=== PATIENT | female | born 1930 | race Caucasian/White ===

== ENCOUNTER 2016-12-23 19:24 | Inpatient (IN) | payer OTHER ==
--- NOTE | 2016-12-23 20:05 | PROVIDER DOCUMENTATION ---
HPI-Respiratory General - General Chief Complaint: Shortness of Breath Stated Complaint: sob Time Seen by Provider: 12/23/16 19:49 Source: patient, family Allergies/Adverse Reactions: Patient Allergies Allergy/AdvReac Type Severity Reaction Status Date / Time No Known Allergies Allergy Verified 09/05/16 09:08 Home Medications: Home Medication List Medication Instructions Recorded Confirmed Last Taken Type Pramipexole [Mirapex] 0.25 mg PO TID 01/17/16 12/23/16 12/23/16 History Megestrol Acetate [Megace Liquid] 200 mg PO BID #60 udc 10/03/16 12/23/16 Rx Mirtazapine [Remeron] 15 mg PO QHS #60 tablet 10/03/16 12/23/16 12/22/16 Rx Amlodipine Besylate 5 mg PO DAILY 12/23/16 12/23/16 12/23/16 History Benazepril HCl [Lotensin] 20 mg PO DAILY 12/23/16 12/23/16 12/23/16 History Buspirone HCl 7.5 mg PO BID 12/23/16 12/23/16 12/23/16 History Citalopram [Celexa] 20 mg PO BID 12/23/16 12/23/16 12/23/16 History Iron Carbonyl/Ascorbic Acid 1 each PO DAILY 12/23/16 12/23/16 12/23/16 History [Icar-C] Magnesium Hydroxide [Milk of 30 ml PO DIRECTED 12/23/16 12/23/16 12/19/16 19: 00 History Magnesia] Multivitamins/Minerals [Centrum 1 tab PO DAILY 12/23/16 12/23/16 12/23/16 History Silver] Omeprazole 40 mg PO DAILY@0700 12/23/16 12/23/16 12/23/16 History Polyethylene Glycol 3350 [Miralax] 17 gm PO DIRECTED 12/23/16 12/23/16 19:00 History - History of Present Illness-Resp Nature of Presenting Problem: 86 Y/O F presents to ED with Respiratory. Pt family states that she's been staying at [facility], nursed called family and states a sudden onset of SOB, rapid breathing, and lethargic. Pt had an ulcer and had surgery which removed the top of her stomach in September. Pt has sorees on the bottom of her feet, and fasciculation. Pt had confused conversation and generalized ABD pain. Quality of Pain: reports: aching Severity in ED: reports: severe Onset/Duration: reports: this morning Timing: reports: still present Cough Quality/Degree: reports: no cough Episode Frequency: no prior episodes Current Respiratory Medication Therapy: Initiated none Associated Symptoms: reports: heart racing, shortness of breath. denies: flu- like symptoms Review of Systems - Adult - REVIEW OF SYSTEMS - ADULT Constitutional: denies: chills, fever Eyes: reports: no symptoms reported Ears, Nose, Mouth & Throat: reports: no symptoms reported Cardiovascular: reports: no symptoms reported Respiratory: reports: shortness of breath, other (increased breathe sounds) Gastrointestinal: reports: abdominal pain, constipation. denies: nausea, vomiting Genitourinary: reports: no symptoms reported Musculoskeletal: reports: no symptoms reported Integumentary: reports: no symptoms reported Neurological: reports: no symptoms reported Psychiatric: reports: no symptoms reported Endocrine: reports: no symptoms reported Hematologic/Lymphatic: reports: no symptoms reported Allergic/Immunologic: reports: no symptoms reported All Other Systems: Reviewed and Negative Past History - Adult - PAST MEDICAL HISTORY-ADULT Review of Records: reports: Old Records Reviewed, Nursing Assessment Review, Medications Reviewed, Social history reviewed & non-contributory. Major Childhood Illnesses: reports: denies history Cardiovascular: reports: HTN Respiratory: reports: denies history Gastrointestinal: reports: denies history Obstetrical/Gynecological: reports: denies history Genitourinary: reports: denies history Musculoskeletal: reports: denies history Neurological: reports: dementia Psychiatric: reports: anxiety Endocrine/Immune: reports: anemia, Diabetes Other Conditions: reports: denies history - PRIOR SURGERIES/PROCEDURES Surgical/Procedure History: reports: appendectomy, cholecystectomy, hysterectomy , bowel surgery - PRIOR HOSPITALIZATIONS Prior Hospitalizations: reports: for similar symptoms - IMMUNIZATION STATUS Childhood Immunizations: See Nurse Assessment Flu Vaccine: See Nurse Assessment - FAMILY HISTORY Family History: reviewed, not pertinent - SOCIAL HISTORY Living Situation: family Physical Exam-General - PHYSICAL EXAM-ADULT Initial Vital Signs Reviewed: Yes - CONSTITUTIONAL General Appearance: no apparent distress, lethargic. negative: appears well, alert - EYES Eyes: PERRL/EOMI, pink conjunctivae - HEAD, EARS, NOSE, MOUTH & THROAT HENMT: normocephalic/atraumatic, TMs normal, pharynx normal. negative: moist mucous membranes - NECK Neck: non-tender, full range of motion, supple - RESPIRATORY Respiratory: chest non-tender, lungs clear, normal breath sounds - CARDIOVASCULAR Cardiovascular: tachycardia - GASTROINTESTINAL (ABDOMEN) Abdominal Exam: normal bowel sounds, tenderness - MUSCULOSKELETAL Back Exam: normal inspection, no CVA tenderness, no vertebral tenderness Extremity: normal range of motion, tenderness (to feet), other (sores on bottom of feet, fasciculation) - SKIN Integumentary: normal color, normal turgor, warm/dry - PSYCHIATRIC Psych/Mental Status: negative: oriented x 3 Progress - PLAN OF CARE/RESULTS Progress/Plan/Lab Results: Laboratory Tests 12/23/16 12/23/16 12/23/16 20:19 20:23 20:23 WBC RBC Hgb Hct MCV MCH MCHC RDW Std Deviation Plt Count MPV Immature Gran % (Auto) Neut % (Auto) Lymph % (Auto) Ritchie % (Auto) Eos % (Auto) Baso % (Auto) Immature Gran # (Auto) Neut # (Auto) Lymph # (Auto) Ritchie # (Auto) Eos # (Auto) Baso # (Auto) D-Dimer Specimen Type Sample Site pH pCO2 pO2 HCO3 Base Excess Oxyhemoglobin ABG O2 Sat (Calculated) ABG O2 Saturation ABG Carboxyhemoglobin ABG Methemoglobin Noel Test A-a O2 Difference Total Hemoglobin Lactate Liter Flow Blood Gas Modality FiO2 % Sodium 134 L Potassium 4.5 Chloride 108 H Carbon Dioxide 11 L Anion Gap 15 BUN 35 H Creatinine 1.6 H Estimated GFR/1.73 m2 30 BUN/Creatinine Ratio 22 Glucose 162 H Calculated Osmolality 280 Calcium 8.7 L Total Bilirubin < 0.15 L AST 22 ALT 9 L Alkaline Phosphatase 100 Creatine Kinase 16 L Troponin T < 0.010 [id number] Pept Total Protein 5.8 L Albumin 2.8 L Globulin 3.0 Albumin/Globulin Ratio 1.0 Urine Source CLEAN CATCH Urine Color YELLOW Urine Clarity VERY CLOUDY A Urine pH 5.0 Ur Specific Douglas 1.010 Urine Protein 2+(100 mg/dL) A Urine Ketones NEGATIVE Urine Blood 1+ A Urine Nitrite NEGATIVE Urine Bilirubin NEGATIVE Urine Urobilinogen NORMAL Urine Microscopic RBC 10-20 A Urine WBC 2+ A Urine Microscopic WBC TNTC A Ur Epithelial Cells <10 Urine Bacteria 1+ Urine Glucose NEGATIVE 12/23/16 12/23/16 12/23/16 20:23 20:23 20:23 WBC 8.94 RBC 3.40 L Hgb 8.7 L Hct 28.2 L MCV 82.9 MCH 25.6 L MCHC 30.9 L RDW Std Deviation 21.0 H Plt Count 569 H MPV 9.6 Immature Gran % (Auto) 0.3 Neut % (Auto) 80.7 H Lymph % (Auto) 11.7 L Ritchie % (Auto) 6.4 Eos % (Auto) 0.3 Baso % (Auto) 0.6 Immature Gran # (Auto) 0.03 Neut # (Auto) 7.21 H Lymph # (Auto) 1.05 L Ritchie # (Auto) 0.57 Eos # (Auto) 0.03 Baso # (Auto) 0.05 D-Dimer 0.85 H Specimen Type Sample Site pH pCO2 pO2 HCO3 Base Excess Oxyhemoglobin ABG O2 Sat (Calculated) ABG O2 Saturation ABG Carboxyhemoglobin ABG Methemoglobin Noel Test A-a O2 Difference Total Hemoglobin Lactate Liter Flow Blood Gas Modality FiO2 % Sodium Potassium Chloride Carbon Dioxide Anion Gap BUN Creatinine Estimated GFR/1.73 m2 BUN/Creatinine Ratio Glucose Calculated Osmolality Calcium Total Bilirubin AST ALT Alkaline Phosphatase Creatine Kinase Troponin T [id number]-[id number]-Mpmzpwuphmi Pept 822 H Total Protein Albumin Globulin Albumin/Globulin Ratio Urine Source Urine Color Urine Clarity Urine pH Ur Specific Douglas Urine Protein Urine Ketones Urine Blood Urine Nitrite Urine Bilirubin Urine Urobilinogen Urine Microscopic RBC Urine WBC Urine Microscopic WBC Ur Epithelial Cells Urine Bacteria Urine Glucose 12/23/16 20:31 WBC RBC Hgb Hct MCV MCH MCHC RDW Std Deviation Plt Count MPV Immature Gran % (Auto) Neut % (Auto) Lymph % (Auto) Ritchie % (Auto) Eos % (Auto) Baso % (Auto) Immature Gran # (Auto) Neut # (Auto) Lymph # (Auto) Ritchie # (Auto) Eos # (Auto) Baso # (Auto) D-Dimer Specimen Type ARTERIAL Sample Site L BRACHIAL pH 7.38 pCO2 20 L pO2 63 HCO3 16.2 L Base Excess -11.0 L Oxyhemoglobin 91.3 L ABG O2 Sat (Calculated) 17.5 ABG O2 Saturation 93.6 L ABG Carboxyhemoglobin 1.30 ABG Methemoglobin 1.2 Noel Test NO A-a O2 Difference 112.0 Total Hemoglobin 13.6 Lactate 1.80 Liter Flow 2.0 Blood Gas Modality CANNULA FiO2 % 28.0 Sodium Potassium Chloride Carbon Dioxide Anion Gap BUN Creatinine Estimated GFR/1.73 m2 BUN/Creatinine Ratio Glucose Calculated Osmolality Calcium Total Bilirubin AST ALT Alkaline Phosphatase Creatine Kinase Troponin T Wga-M-Trqofghjffm Pept Total Protein Albumin Globulin Albumin/Globulin Ratio Urine Source Urine Color Urine Clarity Urine pH Ur Specific Douglas Urine Protein Urine Ketones Urine Blood Urine Nitrite Urine Bilirubin Urine Urobilinogen Urine Microscopic RBC Urine WBC Urine Microscopic WBC Ur Epithelial Cells Urine Bacteria Urine Glucose Orders Category Date Time Status Admit - [facility] Routine AdmDCTranf 12/23/16 21:46 Ordered Activity - Strict Bedrest ORDERED Care 12/23/16 21:46 Active Contraindications to Flu vacci [QM] AT DISCHARGE Care 12/24/16 00:15 Active Does patient desire to be vacc [QM] ONCE Care 12/24/16 00:15 Active FSBS/Accucheck Result AC + HS Care 12/23/16 22:50 Active Urias Cath Insertion ORDERED Care 12/23/16 22:34 Active Intake and Output-Strict ORDERED Care 12/23/16 22:53 Active Notify MD if DIRECTED Care 12/23/16 22:49 Active Notify MD if DIRECTED Care 12/23/16 23:13 Active Previous Flu Vaccine THIS SEAS [QM] ONCE Care 12/24/16 00:15 Active SCD/CONSTANTIN Application [Apply Mechanical Device] [QM] Care 12/23/16 22:53 Active ORDERED Vital Signs Order ARRIVAL TO ROOM Care 12/23/16 21:46 Active Vital Signs Order Q 4-HR ASSESS Care 12/23/16 21:46 Active Case Management Consult Routine Cons 12/24/16 00:14 Active Social Service Consult Routine Cons 12/24/16 00:14 Active Heart Healthy Diet Diet 12/23/16 21:48 Completed Pureed Diet Diet 12/23/16 22:48 Active CHEST-PORTABLE [RAD] Stat Exams 12/23/16 19:47 Taken ABG [RESP] Routine Lab 12/23/16 20:31 Completed BASIC METABOLIC PANEL [CHEM] Routine Lab 12/24/16 06:00 Ordered BLOOD CULTURE [BLDCUL] Stat Lab 12/23/16 20:23 Results CBC WITH DIFF [HEME] Stat Lab 12/23/16 20:23 Completed CBC WITH NO DIFF [HEME] Routine Lab 12/24/16 06:00 Ordered CK PROFILE [SP CHEM] Routine Lab 12/24/16 06:00 Ordered CK PROFILE [SP CHEM] Stat Lab 12/23/16 20:23 Completed COMPREHENSIVE METABOLIC PANEL [CHEM] Stat Lab 12/23/16 20:[address] D-DIMER [address] [COAG] Urgent Lab 12/23/16 20:23 Completed PRO B-NATRIURETIC PEPTIDE Stat Lab 12/23/16 20:23 Completed TROPONIN T Routine Lab 12/24/16 06:00 Ordered TROPONIN T Stat Lab 12/23/16 20:[address] W/POSS RFLX CULT [URINALYSIS] Stat Lab 12/23/16 20:19 Completed URINE CULTURE [RM] Routine Lab 12/23/16 20:37 Received 0.9% Sodium Chloride Inj [Ns] 1,000 ml Med 12/23/16 22:00 Active IV 100 mls/hr Acetaminophen [Tylenol] Med 12/23/16 21:46 Active 650 mg PO Q6H PRN PRN Albuterol 2.5MG/Ipratrop 0.5MG [Duoneb (A & A)] Med 12/23/16 23:30 Active 3 ml INH RTQ4H Buspirone [Buspar] Med 12/24/16 09:00 Active 7.5 mg PO BID Citalopram [Celexa] Med 12/24/16 09:00 Active 20 mg PO BID Iron Carbonyl/Ascorbic Acid [Icar-C] Med 12/24/16 09:00 Active 1 each PO DAILY Levofloxacin 500 mg/D5w [Levaquin 500 mg/D5w] 100 ml Med 12/23/16 21:50 Discontinued IV NOW Levofloxacin 500 mg/D5w [Levaquin 500 mg/D5w] 100 ml Med 12/24/16 22:00 Active IV Q24H Multivitamins/Minerals [Centrum Silver] Med 12/24/16 09:00 Active 1 each PO DAILY Ondansetron [Zofran] Med 12/23/16 21:46 Active 4 mg PO Q6H PRN PRN Pantoprazole [Protonix] Med 12/23/16 23:00 Active 40 mg IV Q24H Polyethylene Glycol 3350 [Miralax] Med 12/23/16 23:00 Active 17 gm PO DIRECTED Pramipexole [Mirapex] Med 12/24/16 09:00 Active 0.25 mg PO TID Sodium Chloride 0.9% Med 12/23/16 23:00 Active 10 ml INJ DIRECTED Aerosol Treatments Routine Oth 12/23/16 21:48 Completed Aerosol Treatments Stat Oth 12/23/16 21:48 Completed Oxygen Device Routine Oth 12/23/16 21:48 Completed Telemetry [OM.EQ] Routine Oth 12/23/16 21:46 Active EKG [EKG] Routine Ther 12/23/16 19:47 Draft Transfer/Admit Order [TRANSFER] Routine Transfer 12/23/16 21:49 Completed Vital Signs - 24 hr 12/23/16 12/23/16 12/23/16 19:26 22:13 22:27 Temperature 98.3 F 98.9 F Pulse Rate 108 H 101 H 96 H Respiratory 34 H 24 18 Rate Blood Pressure 90/46 95/47 96/48 O2 Sat by Pulse 100 99 100 Oximetry 12/23/16 23:29 Temperature Pulse Rate 75 Respiratory 16 Rate Blood Pressure O2 Sat by Pulse 94 L Oximetry - EKG 1 Time of EKG reading by physician:: 20:32 EKG Read and Signed by:: Adin Lerma EKG Interpretation (*Must complete 3 of following elements*): Abnormal Rate: 105 Rhythm: Sinus Tachycardia Comments: Otherwise Normal ECG - CONSULTS/PCP/HOSPITALIST Notification #1 *Consult/PCP/Hospitalist*: Time Discussed: 21:10 Reason/Comments: Admit Consult Disposition: Admit (Admit Accepted) Departure - Departure Time of Disposition Order: 20:58 DIAGNOSIS: UTI (urinary tract infection) Qualifiers: Urinary tract infection type: site unspecified Hematuria presence: without hematuria Qualified Code(s): N39.0 - Urinary tract infection, site not specified Low blood pressure Qualifiers: Hypotension type: unspecified hypotension type Qualified Code(s): I95.9 - Hypotension, unspecified Disposition: ADMITTED INPATIENT 09 Certified Medical Emergency: Emergent Condition: Stable Attestation - Scribe Verification/Attestation Scribe:: Debby Contreras Acting as Scribe for:: Adin Lerma Scribe documention review:: This chart was documented by a scribe and accurately reflects the service the provider performed and the decisions made by the provider.
[2016-12-23 20:20] LABS: URINE SOURCE CLEAN CATCH
[2016-12-23 20:30] LABS: BILIRUBIN URINE NEGATIVE (NEGATIVE); BLOOD URINE 1+ (NEGATIVE); CLARITY VERY CLOUDY (CLEAR); COLOR YELLOW; GLUCOSE URINE NEGATIVE (NEGATIVE); LEUKOCYTES URINE 2+ (NEGATIVE); NITRITE URINE NEGATIVE (NEGATIVE); PROTEIN URINE 2+(100 mg/dL) mg/dL (NEGATIVE); UROBILINOGEN URINE NORMAL
[2016-12-23 20:37] LABS: URINE CULTURE PL NEEDED? YES; URINE EPITHELIAL CELLS <10 /HPF (<10); URINE WBC TNTC /HPF (<10)
[2016-12-23 20:46] LABS: BLOOD TYPE ARTERIAL; DRAW SITE L BRACHIAL; METHB 1.2 % (0.0-1.5); O2(CT) 17.5 mL/dL (15.0-23.0); PCO2(98.6) 20 mmHg (35-45); PO2(98.6) 63 mmHg (60-100); SAMPLE BLOOD; SAO2 93.6 % (95.0-100.0); THB 13.6 g/dL (11.5-17.4); pH(98.6) 7.38 (7.35-7.45)
[2016-12-23 20:50] LABS: ALLEN TEST NO; MODALITY CANNULA
--- NOTE | 2016-12-23 20:51 | EKG Report ---
Test Performed on : 12/23/2016 8:32:24 PM Test Reason : emboli Blood Pressure : / mmHG Vent. Rate : 105 BPM Atrial Rate : 105 BPM P-R Int : 124 ms QRS Dur : 076 ms QT Int : 340 ms P-R-T Axes : 043 -29 070 degrees QTc Int : 449 ms Sinus tachycardia. Otherwise normal ECG When compared with ECG of 15-SEP-2016 17:06, ST no longer depressed in Anterior leads Unconfirmed Result
[2016-12-23 20:57] LABS: MANUAL DIFF NEEDED? NO
[2016-12-23 21:05] LABS: BASO% 0.6 % (0.0-0.8); EOS# 0.03 X1000 (0.0-0.7); EOS% 0.3 % (0.0-10.0); HEMATOCRIT 28.2 % (37.0-47.0); HEMOGLOBIN 8.7 g/dL (12.0-16.0); IMM GRAN# 0.03 X1000 (0.0-0.04); IMM GRAN% 0.3 % (0.0-0.5); LYMPH# 1.05 X1000 (1.2-3.4); LYMPH% 11.7 % (20.5-51.1); MCH 25.6 PG (27-31); MCHC 30.9 g/dL (33-37); MCV 82.9 FL (81-99); MONO# 0.57 X1000 (0.11-0.59); MONO% 6.4 % (1.7-9.3); MPV 9.6 FL (7.4-10.4); NEUT% 80.7 % (42.2-75.2); PLT 569 X1000 (130-400)
[2016-12-23 21:43] LABS: AGAP 15; ALBUMIN 2.8 g/dL (3.5-5.0); ALKALINE PHOSPHATASE 100 U/L (32-104); BUN 35 mg/dL (8-22); CALCIUM 8.7 mg/dL (8.8-10.2); CHLORIDE 108 mmol/L (98-107); CK PROFILE 16 U/L (24-173); COSMO 280; GOT 22 U/L (10-30); GPT 9 U/L (10-36); POTASSIUM 4.5 mmol/L (3.5-5.1); SODIUM 134 mmol/L (136-145); TCO2 11 mmol/L (25-35); TOTAL BILIRUBIN < 0.15 mg/dL (0.20-1.00); TOTAL PROTEIN 5.8 g/dL (6.3-8.3)
[2016-12-23] MEDS ORDERED: ZOFRAN PO PRN (21:46)
[2016-12-23] MEDS ORDERED: LEVAQUIN 500 MG/D5W 100 ML IV ONE (21:50)
[2016-12-23] MEDS ORDERED: MIRALAX PO SCH (23:00)
[2016-12-23] MEDS ORDERED: SODIUM CHLORIDE 0.9% INJ SCH (23:00)
[2016-12-23] MEDS: DUONEB (A & A) INH SCH (23:26)
[2016-12-23] MEDS: NS 1,000 ML IV SCH (23:37)
[2016-12-23] MEDS: PROTONIX IV SCH (23:37)
[2016-12-23] MEDS: TYLENOL PO PRN (23:44)
[2016-12-24] MEDS: DUONEB (A & A) INH SCH ×6 (03:13→23:25)
[2016-12-24] MEDS ORDERED: MILK OF MAGNESIA PO SCH (05:45)
[2016-12-24 06:19] LABS: HEMATOCRIT 24.3 % (37.0-47.0); HEMOGLOBIN 7.6 g/dL (12.0-16.0); MCH 25.7 PG (27-31); MCHC 31.3 g/dL (33-37); MCV 82.1 FL (81-99); MPV 9.7 FL (7.4-10.4); RBC 2.96 XMIL (4.2-5.4)
[2016-12-24] MEDS ORDERED: NON-FORMULARY MED (Omeprazole [Omeprazole] 40 MG) PO SCH (07:00)
[2016-12-24 07:46] LABS: CALCIUM 8.5 mg/dL (8.8-10.2); POTASSIUM 4.9 mmol/L (3.5-5.1)
[2016-12-24] MEDS ORDERED: ZOFRAN ODT PO PRN (08:19)
--- NOTE | 2016-12-24 08:19 | Diag Imaging Result Document ---
PROCEDURE NAME: CHEST-PORTABLE - 12/23/2016 CHEST, SINGLE VIEW: INDICATION: Shortness of breath. COMPARISON: 09/29/2016. FINDINGS: Lung volumes are within normal limits. The heart size is within normal limits. Right PICC catheter has been removed. There are no acute infiltrates. IMPRESSION: No acute cardiopulmonary abnormality.
[2016-12-24] MEDS: NS 1,000 ML IV SCH ×2 (09:54→17:36)
[2016-12-24] MEDS: ICAR-C PO SCH (09:55)
[2016-12-24] MEDS: MIRAPEX PO SCH ×3 (09:55→16:41)
[2016-12-24] MEDS: BUSPAR PO SCH ×2 (09:55→20:03)
[2016-12-24] MEDS: CELEXA PO SCH ×2 (09:55→20:03)
[2016-12-24] MEDS: MULTI-VITAMIN PO SCH (09:56)
[2016-12-24] MEDS: MEGACE LIQUID PO SCH ×2 (09:56→20:05)
--- NOTE | 2016-12-24 10:06 | HISTORY AND PHYSICAL ---
CHIEF COMPLAINT: Shortness of breath. HISTORY OF PRESENT ILLNESS: This is an 86-year-old female with history of diabetes, dementia, hypertension, who had a very prolonged course last admission due to a perforated duodenal ulcer, who presents today with shortness of breath. She cannot catch her breath with significant dyspnea. Workup in the ER revealed some mild tachycardia. Low blood pressures, 90s over 40s, with some degree of hypoxia. Her PaO2 is 63, that was on 2 L, I guess not real severe hypoxia. When she left in September, she was on 3 L and her PO2 was about the same. She did have a mild renal insufficiency. Creatinine of 1.6. Urine was consistent with UTI, bqf-dttcmeck-gk-count white blood cells, 10-20 RBCs, less than 10 squames, so a good sample. [place] to be a UTI with possible sepsis. End-organ damage at this point could be renal insufficiency and then hypoxia without a clear source. PAST MEDICAL HISTORY: 1. Reported again dementia. 2. Type 2 diabetes. 3. Hypertension. 4. Anemia. 5. Neuropathy. 6. Peptic ulcer disease. PAST SURGICAL HISTORY: 1. Cholecystectomy. 2. Hysterectomy. 3. Exploratory laparotomy with lysis of adhesion and partial colectomy 30 cm. 4. Femoral neck fracture repair. 5. Her most recent surgery was her partial gastrectomy with a Billroth type 2 gastrojejunostomy, proximal duodenectomy and antrectomy with an omental flap (I believe that was per Dr. Ford). SOCIAL HISTORY: No tobacco or ethanol. She is currently completing rehab at [facility]. ALLERGIES: No known drug allergies. MEDICATION LIST: Being compiled: 1. Mirapex 2.5 t.i.d. 2. Amlodipine 5 daily. 3. Lotensin 20 daily. 4. Buspirone 7.5 b.i.d. 5. Celexa 20 b.i.d. 6. Multivitamin daily. 7. Icar C daily. 8. Milk of Mag 30 daily. 9. Omeprazole 40 daily. 10. MiraLAX 17 daily. 11. Megace. 12. Remeron. REVIEW OF SYSTEMS: Otherwise negative times a 10 point review of systems. PHYSICAL EXAMINATION: VITAL SIGNS: Blood pressure 96/48, heart rate 96, respiratory rate 18, temperature 98.9 degrees, satting 100% on 3 L. GENERAL: A well-developed female in no acute distress. Does appear to be tachypneic, but she could also just be anxious. HEENT: Pupils equal, round, reactive to light. Extraocular movements were intact. Ear/nose/throat exam revealed she had moist mucous membranes. NECK: Exam was supple. CARDIOVASCULAR EXAM: Regular rate and rhythm. No murmurs, gallops, or rubs. PULMONARY EXAM: Bilateral breath sounds. Clear to auscultation. GI: Soft, nontender, nondistended. Bowel sounds are positive. EXTREMITY EXAM: No clubbing or cyanosis. LYMPHATIC EXAM: No peripheral edema. NEUROLOGICAL EXAM: Nonfocal. LABORATORY DATA: Again, creatinine to 1.5. UA consistent with gross pyuria. Plain films of the chest and abdomen are negative. Report is still pending, though . ASSESSMENT: An 86-year-old female with history of diabetes, recent surgery, chronic debilitated state, presenting with acute kidney injury, urinary tract infection, possibly early sepsis, and respiratory failure. 1. Urinary tract infection and sepsis. She has been placed on Levaquin. Continue intravenous fluids. Lactate was normal, so I do not think she has severe sepsis. We will continue hydration and follow. 2. Acute kidney injury. Continue hydration. Likely place a Urias and monitor her urine output closely and follow. 3. Hypoxia. Chest x-ray. We will follow up with the radiological report. I am reluctant to check a D-dimer because she has been in an out of the hospital, but I do not have a clear source for hypoxia. It could certainly be sepsis and respiratory failure. We will pursue it. If it is positive, will generate the inevitable deep vein thrombosis/pulmonary embolism workup. However, she is at risk for that having been fairly sedentary in rehabilitation. 4. Recent gastrectomy. We will continue Protonix and nutritional support. DISPOSITION: Pending her multiple issues.
[2016-12-24 13:57] LABS: OCCULT BLOOD 1 NEGATIVE (NEGATIVE)
[2016-12-24] MEDS ORDERED: ATIVAN PO ONE (16:48)
[2016-12-24] MEDS ORDERED: NS 250 ML IV ONE (16:52)
[2016-12-24] MEDS ORDERED: VANCOMYCIN IV PER PHARMACY MISC SCH (17:45)
--- NOTE | 2016-12-24 17:59 | PROGRESS NOTE ---
DATE: 12/24/2016 SUBJECTIVE: The patient is sitting up in bed with no specific complaints. OBJECTIVE: Vital Signs: Blood pressure is 89/49, with a heart rate of 98, respirations are 18, temperature is 97.9 degrees oral, with oxygen saturation of 100% on 2 L nasal cannula. Cardiovascular: Regular rate and rhythm. S1 and S2 are appreciated. Pulmonary: Breath sounds are clear. No increased work of breathing noted. Gastrointestinal: Abdomen is soft, nontender, nondistended. Bowel sounds in all 4 quadrants. Extremities: No clubbing, cyanosis, or edema. Calves are nontender. Pulses are palpable x4. DIAGNOSTICS: WBC is 7.43, with a hemoglobin of 7.6, hematocrit of 24.3, and platelets of 480,000. Sodium is 134, potassium 4.9, BUN 40, creatinine 1.6, with a glucose of 111. Troponin is 0.016. Urine culture is pending. ASSESSMENT: 1. Urinary tract infection and sepsis. We will continue Levaquin, continue IV fluids, and follow. 2. Acute kidney injury. This is presumed from urinary tract infection. We will continue with hydration. Continue with Urias in place for accurate I and O. We will trend labs and renal dose any medications. 3. Hypoxia. O2 saturations have been 98%-100% on 2 L nasal cannula. Her D-dimer was 0.85. We are unable to do a CTA pulmonary because of her creatinine. So we will hydrate and then order a V/Q scan. Of note, she had a recent GI bleed and her hemoglobin and hematocrit have dropped from 8.7 and 28 to 7.6 and 24.3, so we will hold off on any anticoagulation until proven, and if she does in fact have a pulmonary embolus then the risk and options will be discussed with the patient and family. 4. Elevated D-dimer as stated above. We will obtain a V/Q scan. 5. Anemia in the setting of recent GI bleed. We will trend her labs and will Hemoccult all stools; she is 7.6 and 24.3 at present, we will transfuse if she drops any more. Dictated by HARITHA Lacey for Ottoniel Martin MD
[2016-12-24 18:00] LABS: HEMATOCRIT 24.5 % (37.0-47.0); HEMOGLOBIN 7.6 g/dL (12.0-16.0); MCH 25.9 PG (27-31); MCV 83.6 FL (81-99); MPV 9.3 FL (7.4-10.4); RBC 2.93 XMIL (4.2-5.4)
[2016-12-24 18:10] LABS: POTASSIUM 4.3 mmol/L (3.5-5.1)
[2016-12-24] MEDS ORDERED: VANCOMYCIN 1,150 MG in NS 250 ML IV ONE (18:30)
[2016-12-24] MEDS: REMERON PO SCH (20:03)
[2016-12-24] MEDS: TYLENOL PO PRN (20:03)
[2016-12-24] MEDS: LEVAQUIN 500 MG/D5W 100 ML IV SCH (22:35)
[2016-12-24] MEDS: PROTONIX IV SCH (22:35)
[2016-12-25] MEDS: DUONEB (A & A) INH SCH ×6 (02:58→23:41)
[2016-12-25 06:30] LABS: CALCIUM 8.1 mg/dL (8.8-10.2); POTASSIUM 4.3 mmol/L (3.5-5.1)
[2016-12-25 06:49] LABS: HEMOGLOBIN 8.1 g/dL (12.0-16.0); MCHC 31.2 g/dL (33-37); MCV 83.6 FL (81-99); MPV 9.2 FL (7.4-10.4); RBC 3.11 XMIL (4.2-5.4)
[2016-12-25] MEDS: NS 1,000 ML IV SCH (08:09)
[2016-12-25] MEDS: MEGACE LIQUID PO SCH ×2 (10:12→22:42)
[2016-12-25] MEDS: MULTI-VITAMIN PO SCH (10:12)
[2016-12-25] MEDS: ICAR-C PO SCH (10:12)
[2016-12-25] MEDS: MIRAPEX PO SCH ×3 (10:12→17:00)
[2016-12-25] MEDS: BUSPAR PO SCH ×2 (10:12→22:41)
[2016-12-25] MEDS: CELEXA PO SCH ×2 (10:12→22:41)
--- NOTE | 2016-12-25 10:50 | PROGRESS NOTE ---
DATE: 12/25/2016 SUBJECTIVE: Patient is still confused. She answers questions but not appropriately. She denies any chest pain, palpitations. Denies any current shortness of breath. States she is feeling a little bit better. OBJECTIVE: Vital signs: Reviewed. Temp 98 degrees, pulse 106 to 63, respiratory 24, BP 107/46, saturation 100% on 2 L. General: The patient is an elderly female who is currently in no real respiratory distress. She is awake, alert. She is tachypneic at times but certainly appears anxious as well. HEENT: Normocephalic. Neck: Supple. CV: Regular rate. Chest: Relatively clear. Positive rhonchi. LABS: Reviewed. Hemoglobin and hematocrit are better at 8 and 26. CO2 is 10, BUN 28, creatinine 1.3. ASSESSMENT: 1. Acute renal failure, improving. 2. Respiratory acidosis. Certainly appears to be more due to hyperventilation than to true metabolic acidosis. 3. Hypoxemia, stable. 4. Recent gastrectomy. 5. Gram-positive cocci in 1 blood culture. Continue vancomycin. PLAN: We will continue IV antibiotics today. Recheck her labs in the a.m. Further orders as needed.
--- NOTE | 2016-12-25 12:38 | Diag Imaging Result Document ---
PROCEDURE NAME: LUNG SCAN / VQ - 12/24/2016 VQ SCAN: INDICATION: Elevated D-dimer. Hypoxia. FINDINGS: Ventilatory images were obtained during the inhalation of 40.3 mCi technetium-99m DTPA, and perfusion images were obtained following the IV administration of 5.8 mCi technetium MAA. Overall, the ventilatory images are suboptimal due to radiotracer clumping and patient motion. The perfusion images show some small nonsegmental perfusion abnormalities. There are no peripheral wedge-shaped perfusion abnormalities to suggest acute pulmonary embolism. No ventilatory/perfusion mismatches are appreciated. IMPRESSION: Low probability of acute pulmonary embolism. [facility]
--- NOTE | 2016-12-25 12:48 | Diag Imaging Result Document ---
PROCEDURE NAME: CHEST-1 VIEW - 12/25/2016 CHEST, SINGLE VIEW: INDICATION: VQ scan. COMPARISON: 12/23/2016. FINDINGS: The cardiomediastinal silhouette is unremarkable for age. The pulmonary vasculature is not congested. There are no infiltrates or effusions. No pneumothorax. There is evidence of previous granulomatous infection. Marked rotator cuff arthropathy is again noted, right shoulder. IMPRESSION: No acute cardiopulmonary abnormality is appreciated.
[2016-12-25] MEDS: REMERON PO SCH (22:41)
[2016-12-25] MEDS: PROTONIX IV SCH (22:42)
[2016-12-26] MEDS: NS 1,000 ML IV SCH ×3 (01:04→16:44)
[2016-12-26] MEDS: LEVAQUIN 500 MG/D5W 100 ML IV SCH ×2 (01:37→21:16)
[2016-12-26] MEDS: DUONEB (A & A) INH SCH ×6 (04:03→22:48)
--- NOTE | 2016-12-26 07:27 | EKG Report ---
Test Performed on : 12/26/2016 07:20:35 AM Test Reason : svt Blood Pressure : / mmHG Vent. Rate : 106 BPM Atrial Rate : 106 BPM P-R Int : 142 ms QRS Dur : 084 ms QT Int : 352 ms P-R-T Axes : 071 017 076 degrees QTc Int : 467 ms Sinus tachycardia. Otherwise normal ECG When compared with ECG of 23-DEC-2016 20:32, No significant change was found Unconfirmed Result
[2016-12-26] MEDS: MEGACE LIQUID PO SCH ×2 (08:40→21:16)
[2016-12-26] MEDS: BUSPAR PO SCH ×2 (08:40→21:16)
[2016-12-26] MEDS: MIRAPEX PO SCH ×3 (08:42→16:44)
[2016-12-26] MEDS: CARDIZEM PO SCH ×2 (08:42→21:16)
[2016-12-26] MEDS: ICAR-C PO SCH (08:43)
[2016-12-26] MEDS: CELEXA PO SCH ×2 (08:43→21:16)
[2016-12-26] MEDS: MULTI-VITAMIN PO SCH (08:45)
--- NOTE | 2016-12-26 09:10 | PROGRESS NOTE ---
DATE: 12/26/2016 SUBJECTIVE: The patient notes she is feeling a little bit better. Denies any current cough, congestion. Denies any shortness of breath. Denies any palpitations. OBJECTIVE: Vital Signs: On physical, temp 98.0 degrees, pulse 114-128, respiratory 22, BP 120/59. General: Patient is a well-developed female who is currently in no respiratory distress. She is awake, alert. She appears anxious on exam. HEENT: Normocephalic. Neck: Supple. CV: Irregular rate. No appreciable murmurs. Chest: Decreased, but equal breath sounds bilaterally. No apparent wheezing this morning. Abdomen: Soft. Extremities: Moves all extremities. LABS: Pending. ASSESSMENT: 1. Acute renal failure, improving. 2. Urinary tract infection, improving. 3. Abnormal blood culture growing coagulase-negative Staphylococcus. 4. Hypoxemia. 5. Supraventricular tachycardia. We will check electrocardiogram. We will add Cardizem to attempt to slow her heart rate some. Further orders as needed.
[2016-12-26] MEDS: REMERON PO SCH (21:16)
[2016-12-26] MEDS: PROTONIX IV SCH (21:16)
[2016-12-27] MEDS: NS 1,000 ML IV SCH (02:30)
[2016-12-27] MEDS: DUONEB (A & A) INH SCH ×6 (02:52→23:05)
[2016-12-27] MEDS ORDERED: VANCOMYCIN 900 MG in NS 250 ML IV SCH (06:30)
[2016-12-27 07:44] LABS: AGAP 11; ALBUMIN 2.5 g/dL (3.5-5.0); ALKALINE PHOSPHATASE 83 U/L (32-104); BUN 13 mg/dL (8-22); CHLORIDE 116 mmol/L (98-107); COSMO 281; GOT 27 U/L (10-30); GPT 9 U/L (10-36); POTASSIUM 3.9 mmol/L (3.5-5.1); SODIUM 141 mmol/L (136-145); TCO2 14 mmol/L (25-35); TOTAL BILIRUBIN < 0.15 mg/dL (0.20-1.00); TOTAL PROTEIN 4.9 g/dL (6.3-8.3)
[2016-12-27 07:54] LABS: HEMATOCRIT 24.4 % (37.0-47.0); HEMOGLOBIN 7.6 g/dL (12.0-16.0); MCH 25.9 PG (27-31); MCHC 31.1 g/dL (33-37); MPV 9.4 FL (7.4-10.4); RBC 2.94 XMIL (4.2-5.4)
[2016-12-27] MEDS ORDERED: LEVAQUIN 500 MG/D5W 100 ML IV SCH (07:59)
--- NOTE | 2016-12-27 08:24 | PROGRESS NOTE ---
DATE: 12/27/2016 SUBJECTIVE: Patient without complaints. Notes that she is feeling better. She does not remember if she get out of bed yesterday or not. Denies any other symptoms. Denies any chest pain. States that her breathing is a little bit better today than yesterday. PHYSICAL EXAMINATION: Vital Signs: Temperature 100.4 degrees, pulse 105, respiratory 22, BP 113/62. General: Patient is a well developed, elderly female who is currently in no respiratory distress. Breathing seems much less labored than yesterday a.m., although yesterday it appeared anxiety had a large role in her difficulty breathing. HEENT: Normocephalic, atraumatic. CATE. Neck: Supple. CV: Regular rate. Chest: Positive rhonchi. No wheezing. Abdomen: Soft. Extremities: Moves all extremities. LABS: Hemoglobin and hematocrit 7 and 24. CMP essentially normal. Albumin 2.5. ASSESSMENT: 1. Moderate protein calorie malnutrition. 2. Anemia of chronic disease, stable. 3. Adult failure to thrive. 4. Dementia. 5. Hypertension. Blood pressures are stable. 6. Acute kidney injury. Serum creatinine 1.6 on admit, currently down to 1.0 and back to her baseline. 7. Supraventricular tachycardia, resolved. 8. Fever. T-max 100 degrees uncertain of the exact cause of this. She has not had a fever in the past 24 hours. We will continue to follow. She is currently on Levaquin. We will change to p.o. We will saline lock. Will ask physical therapy to assist in getting her out of bed and hopefully home soon.
[2016-12-27] MEDS: MULTI-VITAMIN PO SCH (08:35)
[2016-12-27] MEDS: CARDIZEM PO SCH ×2 (08:35→21:16)
[2016-12-27] MEDS: MEGACE LIQUID PO SCH ×2 (08:35→21:15)
[2016-12-27] MEDS: ICAR-C PO SCH (08:35)
[2016-12-27] MEDS: MIRAPEX PO SCH ×3 (08:35→18:06)
[2016-12-27] MEDS: BUSPAR PO SCH ×2 (08:35→21:16)
[2016-12-27] MEDS: CELEXA PO SCH ×2 (08:35→21:16)
[2016-12-27] MEDS: TYLENOL PO PRN (11:30)
--- NOTE | 2016-12-27 12:52 | Diag Imaging Result Document ---
PROCEDURE NAME: CHEST-PORTABLE - 12/27/2016 PORTABLE CHEST: COMPARISON: 12/25/2016. FINDINGS: Heart size is normal. Infrahilar markings on the left appear mildly prominent. The remainder the lungs appear essentially clear. There is no dense consolidation, pleural effusion, or pneumothorax identified. IMPRESSION: Mild prominence of infrahilar markings on the left. No dense consolidation.
[2016-12-27] MEDS ORDERED: MIRALAX PO SCH (21:00)
[2016-12-27] MEDS: PROTONIX PO SCH (21:16)
[2016-12-27] MEDS: REMERON PO SCH (21:16)
[2016-12-27] MEDS: LEVAQUIN PO SCH (21:16)
[2016-12-28] MEDS: DUONEB (A & A) INH SCH ×6 (02:58→23:15)
[2016-12-28] MEDS: TYLENOL PO PRN (04:08)
[2016-12-28] MEDS: MEGACE LIQUID PO SCH ×2 (09:53→21:16)
[2016-12-28] MEDS: CELEXA PO SCH ×2 (09:54→21:16)
[2016-12-28] MEDS: ICAR-C PO SCH (09:54)
[2016-12-28] MEDS: CARDIZEM PO SCH ×2 (09:54→21:16)
[2016-12-28] MEDS: MIRAPEX PO SCH ×3 (09:54→16:19)
[2016-12-28] MEDS: MULTI-VITAMIN PO SCH (09:54)
[2016-12-28] MEDS: BUSPAR PO SCH ×2 (09:54→21:16)
--- NOTE | 2016-12-28 10:28 | PROGRESS NOTE ---
DATE: 12/28/2016 SUBJECTIVE: Patient without complaints. She is uncertain if she got out of bed yesterday or not. Notes that she is not having any current chest pain or palpitations. OBJECTIVE: Vital Signs Reviewed: Temperature 99 degrees, pulse 96, respiratory 18, BP 129/63, satting 98% on room air. General: Patient is a well developed, elderly female, who is currently in no respiratory distress. However, when began discussing with her that she needs to get out of bed, her respiratory rate and heart rate both go up. HEENT: Normocephalic, atraumatic. CATE. Neck: Supple. CV: Regular rate. Chest: Relatively clear. Abdomen: Soft. Extremities: Moves all extremities. Neurologic: No changes. ASSESSMENT: 1. Urinary tract infection, resolved. 2. Sepsis, resolved secondary to urinary tract infection. 3. Hypoxemia continues to be a problem. 4. Chronic obstructive pulmonary disease. 5. Chronic anxiety. PLAN: We will continue to encourage patient to get out of bed. Continue physical therapy. Continue breathing treatments and oxygen. Hopefully can get to rehab first of the week.
[2016-12-28] MEDS: PROTONIX PO SCH (21:16)
[2016-12-28] MEDS: REMERON PO SCH (21:16)
[2016-12-28] MEDS: LEVAQUIN PO SCH (21:16)
[2016-12-29] MEDS: DUONEB (A & A) INH SCH ×6 (03:23→23:12)
[2016-12-29] MEDS: MEGACE LIQUID PO SCH ×3 (09:22→20:49)
[2016-12-29] MEDS: MIRAPEX PO SCH ×3 (09:22→17:08)
[2016-12-29] MEDS: MULTI-VITAMIN PO SCH (09:22)
[2016-12-29] MEDS: CARDIZEM PO SCH ×3 (09:22→21:00)
[2016-12-29] MEDS: ICAR-C PO SCH (09:22)
[2016-12-29] MEDS: BUSPAR PO SCH ×3 (09:22→20:48)
[2016-12-29] MEDS: CELEXA PO SCH ×3 (09:22→21:00)
[2016-12-29] MEDS: TYLENOL PO PRN ×2 (10:23→23:17)
--- NOTE | 2016-12-29 11:44 | PROGRESS NOTE ---
DATE: 12/29/2016 SUBJECTIVE: Patient without complaints. She still complains of being tired, fatigued, and short of breath. She complains of fatigue with any activity but this appears to be more anxiety related as when she is observed while she is sleeping, she has no respiratory issues. However, upon awakening, she immediately starts panting. PHYSICAL EXAMINATION: Vital Signs: Temperature 98, pulse 84, respiratory rate 20, BP 140/65, saturations 96% on 2 L. General: Patient is a well developed, elderly female who is currently in no true respiratory distress while she is sleeping. However, upon awakening, she immediately starts shallow breathing. Abdomen: Soft. Extremities: Moves all extremities. CV: Regular rate. Chest: Relatively clear. No wheezing. LABS: No new labs today. ASSESSMENT: 1. Urinary tract infection, improved. 2. Sepsis, resolved. 3. Acute kidney injury, resolved. 4. Hyperglycemia, stable. 5. Chronic anxiety. 6. Chronic neuropathy. PLAN: We will recheck labs in the a.m. Continue physical therapy, although patient has refused in the past, stating that it makes her too tired to get up. We will continue Levaquin. Hopefully to rehab soon.
[2016-12-29] MEDS: PROTONIX PO SCH ×2 (19:48→20:49)
[2016-12-29] MEDS: REMERON PO SCH ×2 (19:49→20:48)
[2016-12-29] MEDS: LEVAQUIN PO SCH ×2 (20:49→20:52)
[2016-12-30] MEDS: DUONEB (A & A) INH SCH ×4 (03:17→16:11)
[2016-12-30 06:23] LABS: HEMATOCRIT 25.6 % (37.0-47.0); HEMOGLOBIN 8.1 g/dL (12.0-16.0); MCH 25.5 PG (27-31); MCHC 31.6 g/dL (33-37); MCV 80.5 FL (81-99); MPV 9.6 FL (7.4-10.4); RBC 3.18 XMIL (4.2-5.4)
[2016-12-30 06:41] LABS: ALBUMIN 2.5 g/dL (3.5-5.0); CALCIUM 8.3 mg/dL (8.8-10.2); MAGNESIUM 1.3 mg/dL (1.5-2.7); POTASSIUM 3.6 mmol/L (3.5-5.1); TOTAL BILIRUBIN 0.3 mg/dL (0.20-1.00); TOTAL PROTEIN 5.3 g/dL (6.3-8.3)
--- NOTE | 2016-12-30 07:55 | PROGRESS NOTE ---
DATE: 12/30/2016 SUBJECTIVE: Patient without complaints. Interestingly she tells me each morning that she wants to get out of bed but yet refuses to allow the staff to get her out of bed later in the afternoon. OBJECTIVE: Vital Signs: Reviewed. Temperature 98 degrees, pulse 99, respiratory 30, BP 136/52. General: The patient is a well-developed female. She is currently in no respiratory distress while she is lying in bed flat and asleep. However, upon awakening she starts huffing and panting. HEENT: Normocephalic. Neck: Supple. CV: Regular rate. Chest: Relatively clear. Abdomen: Soft. Extremities: Moves all extremities. Neurologic: No changes. ASSESSMENT: 1. Urinary tract infection, resolved. 2. Acute renal failure, resolved. 3. Anemia of chronic disease, stable. Hemoglobin and hematocrit remain roughly about 8.4 and 24. 4. Moderate protein calorie malnutrition, stable. 5. Hypoxemia, stable. 6. Chronic obstructive pulmonary disease with mild exacerbation, stable. PLAN: Hopefully the patient can discharge to rehab soon.
--- NOTE | 2016-12-30 08:24 | Diag Imaging Result Document ---
PROCEDURE NAME: CHEST-PORTABLE - 12/30/2016 PORTABLE CHEST: COMPARISON: 12/27/2016. FINDINGS: The lungs are well expanded. The heart is not enlarged. The vessels are not distended. No consolidation. No pleural effusions. No free air beneath the diaphragm. IMPRESSION: No pneumonia or congestive failure.
[2016-12-30] MEDS ORDERED: VASELINE ONE (09:13)
[2016-12-30] MEDS: MEGACE LIQUID PO SCH (09:20)
[2016-12-30] MEDS: ICAR-C PO SCH (09:21)
[2016-12-30] MEDS: CELEXA PO SCH (09:21)
[2016-12-30] MEDS: MULTI-VITAMIN PO SCH (09:21)
[2016-12-30] MEDS: MIRAPEX PO SCH ×3 (09:21→16:24)
[2016-12-30] MEDS: CARDIZEM PO SCH (09:21)
[2016-12-30] MEDS: BUSPAR PO SCH (09:21)
[2016-12-30] MEDS ORDERED: MAG-OX PO ONE (10:49)
--- NOTE | 2016-12-30 11:13 | DISCHARGE SUMMARY ---
ADMISSION DATE: 12/23/2016 DISCHARGE DATE: 12/30/2016 ADMISSION DIAGNOSES: 1. Urinary tract infection with sepsis. 2. Acute kidney injury. 3. Hypoxia. 4. Recent gastrectomy. DISCHARGE DIAGNOSES: 1. Urinary tract infection, no growth per urine culture. 2. Acute kidney injury, resolved. 3. Moderate protein calorie malnutrition. 4. Hypoxemia, stable. 5. Chronic obstructive pulmonary disease with mild exacerbation, stable. 6. Anemia of chronic disease, stable. SUMMARY OF FINDINGS: This is an 86-year-old female who had a prolonged course on her last admission due to a perforated duodenal ulcer. Presents today, on the , with complaints of shortness of breath and significant dyspnea. Workup in the ER revealed mild tachycardia. Blood pressure is 90s/40s with some degree of hypoxia. PaO2 was 63 on 2 L. Her creatinine was noted to be 1.6. Urine was consistent with a UTI with too numerous to count white blood cells, 10-20 RBCs, and less than 10 squamous cells, felt to be a UTI with possible sepsis. Due to the fact that she did not have a clear source of her hypoxia, a D-dimer was checked and that was 0.85. A lung V/Q scan was performed on 12/24/2016 that showed a low probability of an acute PE. Her chest x-ray today shows no pneumonia or congestive failure. Her labs are stable currently. She was noted to have a low magnesium and we will supplement that. It was 1.3 today. Otherwise, it is felt that she can safely be discharged back to rehab. DISCHARGE MEDICATIONS: Will include Tylenol 650 mg p.o. q.6 hours p.r.n., DuoNeb q.4 hours, buspirone 7.5 mg p.o. b.i.d., Cardizem 30 mg p.o. b.i.d., Levaquin 500 mg p.o. daily for 7 days, Protonix 40 mg p.o. at bedtime, amlodipine 5 mg p.o. daily, benazepril 20 mg p.o. daily, Celexa 20 mg p.o. b.i.d., Icar-C 1 p.o. daily, milk of magnesia as directed q.7 days, Megace 200 mg p.o. b.i.d., Remeron 15 mg p.o. at bedtime, multivitamin p.o. daily, MiraLAX 17 g as directed, Mirapex 0.25 mg p.o. t.i.d. FOLLOWUP: She will follow up with facility physician. A 35 minute discharge. Dictated by HARITHA Lopez for Ottoniel Martin MD
[2016-12-30] MEDS: TYLENOL PO PRN (11:29)
[2016-12-30 16:33] VITALS: BP 81/50
[2016-12-31] MEDS ORDERED: MILK OF MAGNESIA PO SCH (21:00)
[2017-01-02] MEDS ORDERED: MILK OF MAGNESIA PO SCH (21:00)
== END 2016-12-30 16:45 | DRG 872 ==
LOC: P.ED 19:24 → P.MEDSURG 21:48
PROVIDERS: ATTEND Family Medicine
DX: A41.9 Sepsis, unspecified organism (principal); N17.9 Acute kidney failure, unspecified; E87.2 Acidosis; E44.0 Moderate protein-calorie malnutrition; E11.40 Type 2 diabetes mellitus with diabetic neuropathy, unspecified; I47.1 Supraventricular tachycardia; E11.65 Type 2 diabetes mellitus with hyperglycemia; J44.1 Chronic obstructive pulmonary disease with (acute) exacerbation; N39.0 Urinary tract infection, site not specified; Z68.1 Body mass index [BMI] 19.9 or less, adult; R65.20 Severe sepsis without septic shock; F03.90 Unspecified dementia, unspecified severity, without behavioral disturbance, psychotic disturbance, mood disturbance, and anxiety; D63.8 Anemia in other chronic diseases classified elsewhere; I10 Essential (primary) hypertension; R09.02 Hypoxemia; R79.1 Abnormal coagulation profile; R62.7 Adult failure to thrive; F41.9 Anxiety disorder, unspecified; Z90.3 Acquired absence of stomach [part of]; Z87.11 Personal history of peptic ulcer disease; Z90.49 Acquired absence of other specified parts of digestive tract; Z79.899 Other long term (current) drug therapy; Z79.818 Long term (current) use of other agents affecting estrogen receptors and estrogen levels
CPT/HCPCS: 36415; 71010; 78582; 80048; 80053; 81001; 82270; 82550; 82805; 82948; 83605; 83735; 83880; 84484; 85025; 85027; 85379; 87040; 87077; 87088; 93005; 94640; 94761; 99285; A9539; A9540; C9113; J3370; J7030; J7040; J7050; S0179; 97530-GP; S0164